=== PATIENT | female | born 1970 | race Caucasian/White ===

== ENCOUNTER 2023-07-26 16:19 | Emergency (ER) | payer OTHER ==
[2023-07-26 17:09] VITALS: BP 130/67; PULSE 87; RESP 17; TEMP 98; BMI 37.0
== END 2023-07-26 17:22 | disposition home or self-care (01) ==
LOC: JERFT 16:19
DX: J06.9 Acute upper respiratory infection, unspecified (principal); R09.81 Nasal congestion; R05.9 Cough, unspecified; M79.10 Myalgia, unspecified site; R51.9 Headache, unspecified; R50.9 Fever, unspecified; Z20.822 Contact with and (suspected) exposure to COVID-19
CPT/HCPCS: 0241U-QW; 99283-25

== ENCOUNTER 2024-02-15 20:31 | Emergency (ER) | payer OTHER ==
[2024-02-15 20:38] VITALS: BP 128/75; PULSE 71; RESP 18; TEMP 98.4; BMI 33.7
[2024-02-15] MEDS ORDERED: ALBUTEROL SO4 HFA INHALER IH ONE (21:23)
[2024-02-15] MEDS ORDERED: predniSONE 20 MG TABLET (UD) ONE (21:24)
[2024-02-15] MEDS: ALBUTEROL SO4 HFA INHALER IH ONE (21:35)
[2024-02-15] MEDS: predniSONE 20 MG TABLET (UD) PO ONE (21:40)
[2024-02-16] MEDS ORDERED: predniSONE 20 MG TABLET (UD) PO ONE ×2 (21:18)
== END 2024-02-15 21:52 | disposition home or self-care (01) ==
LOC: JERFT 20:31
DX: J45.909 Unspecified asthma, uncomplicated (principal); R05.9 Cough, unspecified; R07.89 Other chest pain; R51.9 Headache, unspecified
CPT/HCPCS: 99283-25